=== PATIENT | male | born 1960 | race Caucasian/White ===

== ENCOUNTER 2018-02-15 07:52 | Day surgery (SDC) | payer BC ==
[~2018-02-15 07:52] MED LIST: Midazolam 1 MG/ML 2 ML SDV ONE; Propofol 200 MG/20 ML SDV ONE; fentaNYL 100 MCG/2 ML SDV ONE
[2018-02-15] MEDS ORDERED: Lactated Ringers 1,000 ML IV SCH (08:45)
[2018-02-15] MEDS ORDERED: Propofol 200 MG/20 ML SDV ONE (09:25)
--- NOTE | 2018-02-15 10:14 | OR ---
DATE OF PROCEDURE: 02/15/2018 PROCEDURE: 1. EGD. 2. Colonoscopy. FINDINGS: 1. No evidence of old or new blood. 2. Very poor colon prep. COMPLICATIONS: None. WELDER/INSTALLER: None. PREOPERATIVE DIAGNOSIS: Weight loss. POSTOPERATIVE DIAGNOSIS: Weight loss. RISKS: Risks, benefits, alternatives, and limitations including, but not limited to infection, bleeding, and perforation were explained to the patient who wished to proceed. PROCEDURE IN DETAIL: The patient was placed in left lateral decubitus position. The EGD scope was introduced, advanced atraumatically into the second part of the duodenum. No abnormalities were noted. No old or new blood. The patient did have some very mild inflammation of the GE junction. This was biopsied using cold biopsy forceps. Remainder of the EGD scope was normal. A digital rectal exam was performed next without abnormalities. Scope was introduced and advanced atraumatically to the ileocecal valve. The patient had solid and liquid stool remaining. Suction irrigation attempts were made to maximize optimization of the colonic mucosa. There was no blood noted, however. There was no evidence of masses or polyps. No diverticulosis. No abnormalities on retroflexion. The patient tolerated the procedure well. Crescencio Bruner MD /[id number]
== END 2018-02-15 10:35 | disposition home or self-care (01) ==
LOC: JP.SDS 07:52
PROVIDERS: ATTEND Surgery
DX: K29.50 Unspecified chronic gastritis without bleeding (principal); R63.4 Abnormal weight loss; D64.9 Anemia, unspecified; J45.909 Unspecified asthma, uncomplicated
CPT/HCPCS: 43239; 45378; 88305; J2250; J2704; J3010; J7120

== ENCOUNTER 2019-04-11 10:44 | Emergency (ER) | payer MEDICAID ==
[2019-04-11] MEDS ORDERED: Ondansetron 4 MG Tab.DIS PO ONE (11:19)
--- NOTE | 2019-04-11 11:29 | EDM.PDOC ---
ED HPI GENERAL MEDICAL PROBLEM - General Chief Complaint: Gastrointestinal Problem Stated Complaint: VOMITTING Time Seen by Provider: 04/11/19 11:05 Source of Information: Reports: Patient, Family History Limitations: Reports: No Limitations - History of Present Illness INITIAL COMMENTS - FREE TEXT/NARRATIVE: 58-year-old male with known metastatic prostate cancer who is been receiving treatments for the past year has had increased headaches and visual complaints so was scheduled for an MRI of his head today. He received an infusion 2 days ago. While coming in for his MRI he had one emesis, one additional emesis after the MRI so he was brought to the emergency room. If he lies still he feels okay , his only pain complaint is his headache. His brother thinks he looks pale. Onset: Gradual, Unknown/Unsure Associated Symptoms: Reports: Loss of Appetite, Malaise, Nausea/Vomiting, Weakness Headache Pain Score (Numeric/FACES): 8 - Related Data Allergies Allergy/AdvReac Type Severity Reaction Status Date / Time No Known Allergies Allergy Verified 04/11/19 10:58 Home Meds: Home Meds Escitalopram [Lexapro] 10 mg PO DAILY 02/13/18 [History] Abiraterone Acetate [Zytiga] 500 mg PO DAILY 04/11/19 [History] predniSONE [Prednisone] 10 mg PO DAILY 04/11/19 [History] Past Medical History - Past Health History Medical/Surgical History: Denies Medical/Surgical History HEENT History: Reports: Impaired Vision Genitourinary History: Reports: Other (See Below) Other Genitourinary History: prostate bx Psychiatric History: Reports: Depression Immunologic History: Reports: None Oncologic (Cancer) History: Reports: Bone, Prostate - Past Surgical History Head Surgeries/Procedures: Reports: None HEENT Surgical History: Reports: None Cardiovascular Surgical History: Reports: None Respiratory Surgical History: Reports: None GI Surgical History: Reports: None Endocrine Surgical History: Reports: None Neurological Surgical History: Reports: None Musculoskeletal Surgical History: Reports: None Oncologic Surgical History: Reports: None Dermatological Surgical History: Reports: None Social & Family History - Family History Family Medical History: Noncontributory - Tobacco Use Smoking Status *Q: Never Smoker Second Hand Smoke Exposure: No - Caffeine Use Caffeine Use: Reports: Tea - Recreational Drug Use Recreational Drug Use: No ED ROS GENERAL - Review of Systems Review Of Systems: See Below Constitutional: Reports: Malaise, Weakness, Decreased Appetite. Denies: Fever, Chills HEENT: Reports: Vision Change, Other (Brother thinks his speech is slower) Respiratory: Denies: Shortness of Breath Cardiovascular: Denies: Chest Pain GI/Abdominal: Reports: Nausea, Vomiting. Denies: Abdominal Pain : Reports: No Symptoms Skin: Reports: Pallor Neurological: Reports: Dizziness, Headache, Weakness. Denies: Difficulty Walking ED EXAM, GI/ABD - Physical Exam Exam: See Below Text/Narrative:: He appears to have a slight disconjugate gaze Exam Limited By: No Limitations General Appearance: Alert, No Apparent Distress Throat/Mouth: Other (Advanced dental caries and dental loss especially the upper teeth) Head: Atraumatic Respiratory/Chest: No Respiratory Distress Cardiovascular: Regular Rate, Rhythm GI/Abdominal Exam: Soft. No: Distended, Tender Extremities: No: Pedal Edema Neurological: Alert, Oriented Psychiatric: Flat Affect Skin Exam: Warm, Dry Course - Vital Signs Last Recorded V/S: Last Vital Signs Temp 97.6 F 04/11/19 11:01 Pulse 65 04/11/19 11:27 Resp 16 04/11/19 11:27 BP 154/75 H 04/11/19 11:27 Pulse Ox 97 04/11/19 11:27 - Orders/Labs/Meds Labs: Laboratory Tests 04/11/19 04/11/19 Range/Units 11:25 11:25 WBC 3.5 L (4.5-11.0) K/uL RBC 3.39 L (4.30-5.90) M/uL Hgb 9.5 L (12.0-15.0) g/dL Hct 29.1 L (40.0-54.0) % MCV 86 (80-98) fL MCH 28 (27-31) pg MCHC 33 (32-36) % Plt Count 214 (150-400) K/uL Neut % (Auto) 65 (36-66) % Lymph % (Auto) 21 L (24-44) % Tama % (Auto) 10 H (2-6) % Eos % (Auto) 3 (2-4) % Baso % (Auto) 1 (0-1) % Sodium 141 (140-148) mmol/L Potassium 3.8 (3.6-5.2) mmol/L Chloride 103 (100-108) mmol/L Carbon Dioxide 28 (21-32) mmol/L Anion Gap 9.8 (5.0-14.0) mmol/L BUN 21 H (7-18) mg/dL Creatinine 1.0 (0.8-1.3) mg/dL Est Cr Clr Drug Dosing 66.34 mL/min Estimated GFR (MDRD) > 60 (>60) Glucose 92 (74-106) mg/dL Calcium 8.0 L (8.5-10.1) mg/dL Total Bilirubin 0.4 (0.2-1.0) mg/dL AST 123 H (15-37) U/L ALT 20 (12-78) U/L Alkaline Phosphatase 420 H (46-116) U/L Total Protein 6.6 (6.4-8.2) g/dL Albumin 3.1 L (3.4-5.0) g/dL Globulin 3.5 (2.3-3.5) g/dL Albumin/Globulin Ratio 0.9 L (1.2-2.2) Meds: Medications Discontinued Medications Generic Name Dose Route Start Last Admin Trade Name Freq PRN Reason Stop Dose Admin Methylprednisolone Sodium Succinate 125 mg 04/11/19 12:57 04/11/19 13:22 Solu-Medrol IM 04/11/19 12:58 125 mg ONETIME ONE Administration Ondansetron HCl 4 mg 04/11/19 11:19 04/11/19 11:26 Zofran Odt PO 04/11/19 11:20 4 mg ONETIME ONE Administration - Re-Assessments/Exams Free Text/Narrative Re-Assessment/Exam: 04/11/19 11:28 Patient was given one sublingual Zofran 4 mg, and a CBC and CMP was obtained. 04/11/19 12:53 CMP look reasonably normal, other than an elevated alkaline phosphatase because of the metastatic bone disease. Hemoglobin has gone down in the last couple of weeks to 9.5 from 11.4. The most concerning finding was the MRI report which I asked to be read as stat, it shows metastatic lesions in the skull as well as dural thickening likely metastatic disease. I'm going to give him 125 mg of IM Solu-Medrol to hopefully decrease some of this inflammation, given 12 hydrocodone for extra pain control and some sublingual Zofran. We discussed transferring him today but the brother would like to give him a few days and see how he does. Departure - Departure Time of Disposition: 13:32 Disposition: Home, Self-Care 01 Clinical Impression: Frequent headaches, Prostate cancer metastatic to bone - Discharge Information Instructions: Prostate Cancer, [id number] Referrals: PCP,None [Primary Care Provider] - Forms: ED Department Discharge Care Plan Goals: Use Zofran under your tongue 3 times a day for nausea and take the hydrocodone for extra pain control. Recheck as scheduled.
[2019-04-11] MEDS ORDERED: methylPREDNISolone Sodium Succinate 125 MG/2 ML SDV IM ONE (12:57)
== END 2019-04-11 13:24 | disposition home or self-care (01) ==
LOC: JP.ED 10:44
DX: R51 Headache (principal); C61 Malignant neoplasm of prostate; C79.51 Secondary malignant neoplasm of bone; Z79.899 Other long term (current) drug therapy
CPT/HCPCS: 36415; 80053; 85025; 96372; 99284; A9270; J2930

== ENCOUNTER 2019-04-14 12:55 | Observation (INO) | payer MEDICAID ==
[2019-04-14] MEDS ORDERED: Sodium Chloride 0.9% 10 ML Syringe FLUSH PRN ×2 (13:14→14:38)
--- NOTE | 2019-04-14 13:25 | EDM.PDOC ---
ED HPI GENERAL MEDICAL PROBLEM - General Chief Complaint: General Stated Complaint: CANCER PATIENT Time Seen by Provider: 04/14/19 13:00 Source of Information: Reports: Family History Limitations: Reports: Altered Mental Status, Other (Patient is lethargic and unresponsive) - History of Present Illness INITIAL COMMENTS - FREE TEXT/NARRATIVE: 58-year-old male with known metastatic cancer, including metastatic disease to the cranium and dura, felt to be prostate cancer. He has an appointment for radiation therapy tomorrow to hopefully reduce tumor burden but the outcome and expectations are very grim. He was seen last week, given some pain control, a call to his oncologist on Monday resulted in the edition of oral Decadron. He was still having significant headaches but yesterday stop taking anything oral, started having decreased responsiveness and today his brother wasn't able to wake him up. He is still breathing but it's irregular. Associated Symptoms: Denies: Nausea/Vomiting - Related Data Allergies Allergy/AdvReac Type Severity Reaction Status Date / Time No Known Allergies Allergy Verified 04/14/19 13:06 Home Meds: Home Meds Escitalopram [Lexapro] 10 mg PO DAILY 02/13/18 [History] Abiraterone Acetate [Zytiga] 500 mg PO DAILY 04/11/19 [History] predniSONE [Prednisone] 10 mg PO DAILY 04/11/19 [History] Past Medical History - Past Health History Medical/Surgical History: Denies Medical/Surgical History HEENT History: Reports: Impaired Vision Genitourinary History: Reports: Other (See Below) Other Genitourinary History: prostate bx Psychiatric History: Reports: Depression Immunologic History: Reports: None Oncologic (Cancer) History: Reports: Bone, Prostate - Past Surgical History Head Surgeries/Procedures: Reports: None HEENT Surgical History: Reports: None Cardiovascular Surgical History: Reports: None Respiratory Surgical History: Reports: None GI Surgical History: Reports: None Endocrine Surgical History: Reports: None Neurological Surgical History: Reports: None Musculoskeletal Surgical History: Reports: None Oncologic Surgical History: Reports: None Dermatological Surgical History: Reports: None Social & Family History - Family History Family Medical History: Noncontributory - Caffeine Use Caffeine Use: Reports: Tea ED ROS GENERAL - Review of Systems Review Of Systems: Unable To Obtain ED EXAM, GENERAL - Physical Exam Exam: See Below Exam Limited By: Other General Appearance: Obtunded Eye Exam: Right Eye: Other (Patient now has a disconjugate gaze, with a fixed dilated right pupil) Respiratory/Chest: No Respiratory Distress, Other (Breathing is irregular) Cardiovascular: Regular Rate, Rhythm Neurological: Slow to Respond Skin Exam: Warm, Dry Course - Vital Signs Last Recorded V/S: Last Vital Signs Temp 209.8 F H 04/14/19 13:13 Pulse 64 04/14/19 13:13 Resp 13 04/14/19 13:13 BP 164/78 H 04/14/19 13:13 Pulse Ox 96 04/14/19 13:13 - Orders/Labs/Meds Orders: Medication Orders Acetaminophen (Tylenol) 650 mg PO Q4H PRN PRN Reason: Pain (Mild 1-3)/fever Dexamethasone (Dexamethasone) 4 mg IVPUSH Q6H JSOE Last Admin: 04/14/19 15:48 Dose: 4 mg Lorazepam (Ativan Oral Concentrate 1mg/0.5 Ml U/D) 0.5 mg BUCCAL Q2H PRN PRN Reason: Anxiety Last Admin: 04/14/19 16:27 Dose: 0.5 mg Lorazepam (Ativan) 1 mg IVPUSH Q1H PRN PRN Reason: Seizures Morphine Sulfate (Morphine 10 Mg/0.5 Ml Oral Syringe) 5 mg BUCCAL Q1H PRN PRN Reason: Pain Last Admin: 04/14/19 15:48 Dose: 5 mg Ondansetron HCl (Zofran) 4 mg IV Q4H PRN PRN Reason: Nausea/Vomiting Polyethylene Glycol (Miralax) 17 gm PO DAILY PRN PRN Reason: Constipation Sodium Chloride (Saline Flush) 10 ml FLUSH ASDIRECTED PRN PRN Reason: Keep Vein Open Meds: Medications Generic Name Dose Route Start Last Admin Trade Name Freq PRN Reason Stop Dose Admin Acetaminophen 650 mg 04/14/19 14:38 Tylenol PO Q4H PRN Pain (Mild 1-3)/fever Dexamethasone 4 mg 04/14/19 16:00 04/14/19 15:48 Dexamethasone IVPUSH 4 mg Q6H JOSE Administration Lorazepam 0.5 mg 04/14/19 14:38 04/14/19 16:27 Ativan Oral Concentrate 1mg/0.5 Ml U/D BUCCAL 0.5 mg Q2H PRN Administration Anxiety Lorazepam 1 mg 04/14/19 14:38 Ativan IVPUSH Q1H PRN Seizures Morphine Sulfate 5 mg 04/14/19 14:38 04/14/19 15:48 Morphine 10 Mg/0.5 Ml Oral Syringe BUCCAL 5 mg Q1H PRN Administration Pain Ondansetron HCl 4 mg 04/14/19 14:38 Zofran IV Q4H PRN Nausea/Vomiting Polyethylene Glycol 17 gm 04/14/19 14:38 Miralax PO DAILY PRN Constipation Sodium Chloride 10 ml 04/14/19 14:38 Saline Flush FLUSH ASDIRECTED PRN Keep Vein Open Discontinued Medications Generic Name Dose Route Start Last Admin Trade Name Freq PRN Reason Stop Dose Admin Sodium Chloride 10 ml 04/14/19 13:14 Saline Flush FLUSH ASDIRECTED PRN Keep Vein Open - Re-Assessments/Exams Free Text/Narrative Re-Assessment/Exam: 04/14/19 13:24 Explained to the patient's brother that the physical findings are indicating increased cranial pressure in a terminal event is likely. He is going to discuss hospitalization with our hospitalist service for end-of-life care. Departure - Departure Time of Disposition: 14:16 Disposition: Admitted As Inpatient 65 Condition: Critical Clinical Impression: Prostate cancer metastatic to bone, Encephalopathy, unspecified Change in mental status Qualifiers: Altered mental status type: somnolence Qualified Code(s): R40.0 - Somnolence - Discharge Information
--- NOTE | 2019-04-14 13:56 | PCM.HP ---
H&P History of Present Illness - General Date of Service: 04/14/19 Admit Problem/Dx: Admission Diagnosis/Problem Admission Diagnosis/Problem Prostate cancer metastatic to multiple sites Source of Information: Family, Provider, RN Notes Reviewed History Limitations: Reports: Altered Mental Status (Obtunded) - History of Present Illness Initial Comments - Free Text/Narative: Mr. Hi is a 58-year-old gentleman who was admitted to [facility] status, for management of end-stage widely metastatic prostate carcinoma. He is been having difficulty with headaches, recent head scan showed evidence of significant metastatic disease involving the skull as well as meninges. Plan was to consider palliative radiation therapy, he preferred to go home rather than be transferred to [place] on recent evaluation. Last night he slept in the chair and his brother was unable to wake him up this morning. He was brought into the emergency department for further evaluation. On physical examination the right pupil is dilated and the left pupil is small. Likely that he has progressed to herniation related to his metastatic prostate carcinoma. His brother is his healthcare power of assistant district attorney. He feels it's consistent with the patient's previously expressed wishes that we proceed with comfort cares but no further aggressive evaluation or intervention. - Related Data Allergies/Adverse Reactions: Allergies Allergy/AdvReac Type Severity Reaction Status Date / Time No Known Allergies Allergy Verified 04/14/19 13:06 Home Medications: Home Meds Escitalopram [Lexapro] 10 mg PO DAILY 02/13/18 [History] Abiraterone Acetate [Zytiga] 500 mg PO DAILY 04/11/19 [History] predniSONE [Prednisone] 10 mg PO DAILY 04/11/19 [History] Past Medical History - Past Health History Medical/Surgical History: Denies Medical/Surgical History HEENT History: Reports: Impaired Vision Genitourinary History: Reports: Other (See Below) Other Genitourinary History: prostate bx Psychiatric History: Reports: Depression Immunologic History: Reports: None Oncologic (Cancer) History: Reports: Bone, Prostate - Past Surgical History Head Surgeries/Procedures: Reports: None HEENT Surgical History: Reports: None Cardiovascular Surgical History: Reports: None Respiratory Surgical History: Reports: None GI Surgical History: Reports: None Endocrine Surgical History: Reports: None Neurological Surgical History: Reports: None Musculoskeletal Surgical History: Reports: None Oncologic Surgical History: Reports: None Dermatological Surgical History: Reports: None Social & Family History - Family History Family Medical History: Noncontributory - Caffeine Use Caffeine Use: Reports: Tea H&P Review of Systems - Review of Systems: Review Of Systems: Unable To Obtain General: Reports: ROS unobtainable (Unable to obtain) Exam - Exam Exam: (Unable to obtain, patient is obtunded) - Vital Signs Vital Signs: Last Vital Signs Temp 209.8 F H 04/14/19 13:13 Pulse 64 04/14/19 13:13 Resp 13 04/14/19 13:13 BP 164/78 H 04/14/19 13:13 Pulse Ox 96 04/14/19 13:13 Weight: 125 lb - Exam General: Obtunded HEENT: No: Pupils Equal (Right pupil is large, left of normal size) Neck: Supple, Trachea Midline, +2 Carotid Pulse wo Bruit Lungs: Clear to Auscultation, Normal Respiratory Effort Cardiovascular: Regular Rate, Regular Rhythm, Normal S1, Normal S2 GI/Abdominal Exam: Soft, No Organomegaly, No Distention Extremities: Pedal Edema Skin: Warm, Dry, Intact Neuro Extensive - Mental Status: Withdraws to Pain *Q Meaningful Use (ADM) - VTE *Q VTE Anticoagulation Contraindications: Med/TX Not Indicated/Need - VTE Risk Assess *Q Each Risk Factor Represents 1 Point: None Total Score 1 Point Risk Factors: 0 Each Risk Factor Represents 2 Points: Age 60 - 74 Years, Malignancy (present or previous) Total Score 2 Point Risk Factors: 4 Each Risk Factor Represents 3 Points: None Total Score 3 Point Risk Factors: 0 Each Risk Factor Represents 5 Points: None Total Score 5 Point Risk Factors: 0 Venous Thromboembolism Risk Factor Score *Q: 4 Problem List Initiated/Reviewed/Updated: Yes Orders Last 24hrs: Active Orders 24 hr Category Date Time Status Patient Status Manage Transfer [TRANSFER] Routine ADT 04/14/19 13:43 Ordered Sodium Chloride 0.9% [Saline Flush] Med 04/14/19 13:14 Active 10 ml FLUSH ASDIRECTED PRN Saline Lock Insert [OM.PC] Routine Oth 04/14/19 13:14 Ordered Resuscitation Status Routine Resus Stat 04/14/19 13:45 Ordered Medication Orders Sodium Chloride (Saline Flush) 10 ml FLUSH ASDIRECTED PRN PRN Reason: Keep Vein Open Assessment/Plan Comment:: ASSESSMENT AND PLAN END-STAGE WIDELY METASTATIC PROSTATE CARCINOMA-known metastatic disease to skull and meninges. 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 His brother is present and he is his confirmed healthcare power of assistant district attorney, patient is obtunded and unable to provide any meaningful information. Brother feels that it's very consistent with on's previously expressed wishes that we treat for comfort at this point, with no further aggressive intervention or evaluation. -Comfort cares only -IV Decadron 4 mg every 6 hours -Liquid morphine as needed for pain -Liquid lorazepam as needed for anxiety or agitation -IV lorazepam as needed for seizures PALLIATIVE CARE-no further aggressive interventions or evaluation as above MAINTENANCE ISSUES -DVT prophylaxis; not indicated -GI prophylaxis; not indicated -Jerome catheter; not indicated -Nutrition; regular diet as tolerated -Nicotine dependence; not required CODE STATUS-DNR/DNI, COMFORT CARES ONLY ADMISSION STATUS-this patient will be admitted to observation status, expect no more than a one night hospital stay for evaluation and management of problems as outlined above. DISPOSITION-anticipate imminent PRIMARY CARE PROVIDER-
[2019-04-14] MEDS ORDERED: Ondansetron 4 MG/2 ML SDV IV PRN (14:38)
[2019-04-14] MEDS ORDERED: LORazepam 2 MG/ML SDV IVPUSH PRN (14:38)
[2019-04-14] MEDS ORDERED: Acetaminophen 325 MG Tab PO PRN (14:38)
[2019-04-14] MEDS ORDERED: Polyethylene Glycol 3350 Powder 17 GM Packet PO PRN (14:38)
[2019-04-14] MEDS: Morphine 10 MG/0.5 ML Oral Syringe BUCCAL PRN ×2 (15:48→19:57)
[2019-04-14] MEDS: Dexamethasone 4 MG/ML SDV IVPUSH SCH ×2 (15:48→22:03)
[2019-04-14] MEDS: LORazepam ORAL Concentrate 1MG/0.5ML U/D BUCCAL PRN ×2 (16:27→21:59)
[2019-04-15] MEDS: Morphine 10 MG/0.5 ML Oral Syringe BUCCAL PRN ×2 (00:12→04:15)
[2019-04-15] MEDS: LORazepam ORAL Concentrate 1MG/0.5ML U/D BUCCAL PRN (02:20)
[2019-04-15] MEDS: Dexamethasone 4 MG/ML SDV IVPUSH SCH ×3 (04:50→16:14)
--- NOTE | 2019-04-15 10:12 | PCM.PN ---
- General Info Date of Service: 04/15/19 Subjective Update: There were no acute events overnight. The patient is alert and interactive today. He is not able to open his right eye. When his right eyelid is mechanically retracted he is able to see but has blurry vision. He does not report a headache today. Does not have nausea. Situation was discussed with his brother as well as 2 nieces. The plan is to continue with comfort care only. Additional workup will not be completed at this time. Hospice consultation will be completed this afternoon. Functional Status: Reports: Pain Controlled - Review of Systems HEENT: Reports: Visual Changes Neurological: Reports: Confusion, Other. Denies: Headache - Patient Data Vitals - Most Recent: Last Vital Signs Temp 37.3 C 04/15/19 07:00 Pulse 83 04/15/19 07:00 Resp 20 04/15/19 07:00 BP 125/72 04/15/19 07:00 Pulse Ox 96 04/15/19 07:00 Weight - Most Recent: 56.699 kg I&O - Last 24 Hours: Intake & Output 04/14/19 04/15/19 04/15/19 22:59 06:59 14:59 Intake Total 350 Balance 350 Med Orders - Current: Current Medications Acetaminophen (Tylenol) 650 mg PO Q4H PRN PRN Reason: Pain (Mild 1-3)/fever Dexamethasone (Dexamethasone) 4 mg IVPUSH Q6H JOSE Stop: 04/15/19 16:00 Last Admin: 04/15/19 09:19 Dose: 4 mg Lorazepam (Ativan Oral Concentrate 1mg/0.5 Ml U/D) 0.5 mg BUCCAL Q2H PRN PRN Reason: Anxiety Last Admin: 04/15/19 02:20 Dose: 0.5 mg Lorazepam (Ativan) 1 mg IVPUSH Q1H PRN PRN Reason: Seizures Morphine Sulfate (Morphine 10 Mg/0.5 Ml Oral Syringe) 5 mg BUCCAL Q1H PRN PRN Reason: Pain Last Admin: 04/15/19 04:15 Dose: 5 mg Ondansetron HCl (Zofran) 4 mg IV Q4H PRN PRN Reason: Nausea/Vomiting Polyethylene Glycol (Miralax) 17 gm PO DAILY PRN PRN Reason: Constipation Sodium Chloride (Saline Flush) 10 ml FLUSH ASDIRECTED PRN PRN Reason: Keep Vein Open Discontinued Medications Sodium Chloride (Saline Flush) 10 ml FLUSH ASDIRECTED PRN PRN Reason: Keep Vein Open - Exam Quality Assessment: No: Supplemental Oxygen General: Alert, Cooperative, No Acute Distress HEENT: Other (right eye ptosis). No: Pupils Equal (right pupil dilated ) Lungs: Normal Respiratory Effort Cardiovascular: Regular Rate, Regular Rhythm GI/Abdominal Exam: Soft, No Distention Extremities: No Pedal Edema Skin: Warm, Dry Neurological: No New Focal Deficit, Strength Equal Bilateral Psy/Mental Status: Alert, Normal Affect - Problem List Review Problem List Initiated/Reviewed/Updated: Yes - My Orders Last 24 Hours: My Active Orders 04/15/19 21:00 dexAMETHasone 8 mg PO BID - Plan Plan:: ASSESSMENT AND PLAN END-STAGE WIDELY METASTATIC PROSTATE CARCINOMA - known metastatic disease to skull and meninges. Patient and brother who is the power of claims attorney are not interested in aggressive workup. They are interested in hospice consultation for further information. Patient is alert and interactive today after steroids were initiated yesterday. -Comfort cares only - transition to oral dexamethasone -Liquid morphine as needed for pain -Liquid lorazepam as needed for anxiety or agitation -IV lorazepam as needed for seizures PALLIATIVE CARE - no further aggressive interventions or evaluation as above MAINTENANCE ISSUES -DVT prophylaxis; not indicated -GI prophylaxis; not indicated -Jerome catheter; not indicated -Nutrition; regular diet as tolerated -Nicotine dependence; not required CODE STATUS-DNR/DNI, COMFORT CARES ONLY ADMISSION STATUS - this patient will be admitted to observation status, expect no more than a one night hospital stay for evaluation and management of problems as outlined above. DISPOSITION - anticipate discharge to home with hospice Daniele Ambriz M.D.
[2019-04-15] MEDS: Dexamethasone 4 MG Tab PO SCH (21:36)
[2019-04-16] MEDS ORDERED: ABIRATERONE ACETATE 1000 MG PO SCH (07:30)
[2019-04-16] MEDS: Dexamethasone 4 MG Tab PO SCH ×2 (08:36→21:33)
[2019-04-16] MEDS: ZYTIGA 500 MG PO SCH (08:36)
--- NOTE | 2019-04-16 11:53 | PCM.PN ---
- General Info Date of Service: 04/16/19 Subjective Update: There were no acute events overnight. Patient slept well. He has not had any pain. He does not report a headache. Still can't open his right eye. Appetite has been good. Family met with hospice yesterday and they are strongly considering utilizing hospice services after hospital discharge. Family is preparing the home for the patient to come home if he has a stable night tonight. Functional Status: Reports: Pain Controlled, Tolerating Diet - Review of Systems General: Denies: Fever HEENT: Reports: Visual Changes Neurological: Denies: Headache - Patient Data Vitals - Most Recent: Last Vital Signs Temp 37.1 C 04/16/19 10:46 Pulse 16 L 04/16/19 10:46 Resp 16 04/16/19 10:46 BP 164/111 H 04/16/19 10:46 Pulse Ox 98 04/16/19 10:46 Weight - Most Recent: 56.699 kg I&O - Last 24 Hours: Intake & Output 04/15/19 04/16/19 04/16/19 22:59 06:59 14:59 Intake Total 600 Balance 600 Med Orders - Current: Current Medications Acetaminophen (Tylenol) 650 mg PO Q4H PRN PRN Reason: Pain (Mild 1-3)/fever Dexamethasone (Dexamethasone) 8 mg PO BID JOSE Last Admin: 04/16/19 08:36 Dose: 8 mg Lorazepam (Ativan Oral Concentrate 1mg/0.5 Ml U/D) 0.5 mg BUCCAL Q2H PRN PRN Reason: Anxiety Last Admin: 04/15/19 02:20 Dose: 0.5 mg Lorazepam (Ativan) 1 mg IVPUSH Q1H PRN PRN Reason: Seizures Morphine Sulfate (Morphine 10 Mg/0.5 Ml Oral Syringe) 5 mg BUCCAL Q1H PRN PRN Reason: Pain Last Admin: 04/15/19 04:15 Dose: 5 mg Ondansetron HCl (Zofran) 4 mg IV Q4H PRN PRN Reason: Nausea/Vomiting Zytiga 500mg ( (Abiraterone) (Ptom)) 0 each PO DAILY JOSE Last Admin: 04/16/19 08:36 Dose: 1 each Polyethylene Glycol (Miralax) 17 gm PO DAILY PRN PRN Reason: Constipation Sodium Chloride (Saline Flush) 10 ml FLUSH ASDIRECTED PRN PRN Reason: Keep Vein Open Discontinued Medications Dexamethasone (Dexamethasone) 4 mg IVPUSH Q6H JOSE Stop: 04/15/19 16:00 Last Admin: 04/15/19 16:14 Dose: 4 mg Sodium Chloride (Saline Flush) 10 ml FLUSH ASDIRECTED PRN PRN Reason: Keep Vein Open - Exam Quality Assessment: No: Supplemental Oxygen General: Alert, Oriented, Cooperative, No Acute Distress HEENT: Other (right ptosis ). 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 Patient and brother who is the power of dental surgery doctor are not interested in aggressive workup. Hospice consultation completed. The goal is for the patient to return home and the family is working on preparing the space for him. Tolerating steroids so far. Still unable to open the right eye. -Comfort cares only -Continue oral dexamethasone -Liquid morphine as needed for pain -Liquid lorazepam as needed for anxiety or agitation -IV lorazepam as needed for seizures PALLIATIVE CARE - no further aggressive interventions or evaluation as above MAINTENANCE ISSUES -DVT prophylaxis; not indicated -GI prophylaxis; not indicated -Jerome catheter; not indicated -Nutrition; regular diet as tolerated -Nicotine dependence; not required CODE STATUS-DNR/DNI, COMFORT CARES ONLY ADMISSION STATUS - this patient will be admitted to observation status, expect no more than a one night hospital stay for evaluation and management of problems as outlined above. DISPOSITION - anticipate discharge to home with hospice tomorrow Daniele Ambriz M.D.
[2019-04-16] MEDS: Morphine 10 MG/0.5 ML Oral Syringe BUCCAL PRN (21:33)
[2019-04-17] MEDS: Morphine 10 MG/0.5 ML Oral Syringe BUCCAL PRN (09:28)
[2019-04-17] MEDS: ZYTIGA 500 MG PO SCH (09:30)
[2019-04-17] MEDS: Dexamethasone 4 MG Tab PO SCH (09:30)
--- NOTE | 2019-04-17 11:54 | PCM.DCSUM1 ---
Discharge Summary - Hospital Course Brief History: 58-year-old male with known prostate cancer with metastases to the skull and dura who presented with an episode of unresponsiveness. Workup in the emergency room was concerning for brain herniation and he was admitted for comfort care/palliative care. Diagnosis: Stroke: No - Discharge Data Discharge Date: 04/17/19 Discharge Disposition: Home, Self-Care 01 Condition: Stable - Discharge Diagnosis/Problem(s) (1) Prostate cancer metastatic to bone SNOMED Code(s): 706795806 ICD Code: C61 - MALIGNANT NEOPLASM OF PROSTATE; C79.51 - SECONDARY MALIGNANT NEOPLASM OF BONE Status: Acute (2) Encephalopathy, unspecified SNOMED Code(s): 34372215 ICD Code: G93.40 - ENCEPHALOPATHY, UNSPECIFIED Status: Acute - Patient Summary/Data Hospital Course: Isaac presented to the emergency room after an episode of unresponsiveness at home. Examination in the emergency room revealed what appeared to be a blown pupil on the right side. There was concern that the patient was herniating in the setting of his prostate cancer with metastases to the skull and invasion into the dura. Discussion with his brother in the emergency room revealed that he did not think the patient would want aggressive measures in the setting of his very advanced prostate cancer. No imaging was completed. The patient was admitted to the hospital for comfort cares. Steroids were administered with the help of reducing discomfort. Overnight there were no acute issues and the patient received very minimal medications for discomfort. The morning after admission the patient woke up and seemed to be back to his usual self other than feeling weak. The one exception was that he was not able to open his right eye. Even with his right eye open his pupil was very dilated and vision was blurry. The patient did have a headache temporarily the day after admission but has not had a headache since that time. We had several discussions with the patient and his brother about plan of care moving forward. They were in agreement that with his advanced prostate cancer that further aggressive workup or treatment were not within their wishes. The patient desires quality of life over quantity at this time. They did consult with hospice and are interested in hospice care after the hospital discharge. Patient has not used any pain medication since early into the hospital stay. He is comfortable and up and walking around with minimal assistance. He has been eating a regular diet. He has been tolerating his oral steroids well. The plan is for him to be discharged with his brother and will be staying with his brother. Hospice will be completing admission in 2 days time. He will continue on his steroids. He will continue taking his Zytiga as long as he has his own supply which is about 1 month. The patient and family were in agreement with the planned. - Patient Instructions Diet: Regular Diet as Tolerated Activity: As Tolerated Driving: Do Not Drive Showering/Bathing: May Shower Notify Provider of: Fever, Increased Pain Other/Special Instructions: 1. You were in the hospital for management of encephalopathy likely as a result of your advanced and metastatic prostate cancer causing swelling around your brain. Your condition did improve with steroid therapy. I would recommend that you continue taking dexamethasone 8 mg twice daily to help reduce swelling in/around your brain as well as help with the bone pain. You may continue to take your Zytiga daily until your supply is exhausted. You may use acetaminophen or ibuprofen for pain or headaches. 2. I have placed a referral to Hospice. They will complete the admission process on April 19. If you have difficulties between now and the time of admission please call [phone] and ask to speak to Dr. Ambriz. - Discharge Plan *PRESCRIPTION DRUG MONITORING PROGRAM REVIEWED*: Not Applicable *COPY OF PRESCRIPTION DRUG MONITORING REPORT IN PATIENT GASPER: Not Applicable Home Medications: Home Meds Abiraterone Acetate [Zytiga] 1,000 mg PO ACBREAKFAST 04/11/19 [History] dexAMETHasone [Dexamethasone] 8 mg PO BID 04/17/19 [History] Oxygen Therapy Mode: Room Air - Discharge Summary/Plan Comment DC Time >30 min.: Yes (40 - coordinating hospice care) - Patient Data Vitals - Most Recent: Last Vital Signs Temp 37.1 C 04/16/19 10:46 Pulse 16 L 04/16/19 10:46 Resp 16 04/16/19 10:46 BP 164/111 H 04/16/19 10:46 Pulse Ox 98 04/16/19 10:46 Weight - Most Recent: 56.699 kg I&O - Last 24 hours: Intake & Output 04/16/19 04/17/19 04/17/19 22:59 06:59 14:59 Intake Total 240 Balance 240 Med Orders - Current: Current Medications Acetaminophen (Tylenol) 650 mg PO Q4H PRN PRN Reason: Pain (Mild 1-3)/fever Dexamethasone (Dexamethasone) 8 mg PO BID [facility] Last Admin: 04/17/19 09:30 Dose: 8 mg Lorazepam (Ativan Oral Concentrate 1mg/0.5 Ml U/D) 0.5 mg BUCCAL Q2H PRN PRN Reason: Anxiety Last Admin: 04/15/19 02:20 Dose: 0.5 mg Lorazepam (Ativan) 1 mg IVPUSH Q1H PRN PRN Reason: Seizures Last Admin: 04/16/19 23:14 Dose: 1 mg Morphine Sulfate (Morphine 10 Mg/0.5 Ml Oral Syringe) 5 mg BUCCAL Q1H PRN PRN Reason: Pain Last Admin: 04/17/19 09:28 Dose: 5 mg Ondansetron HCl (Zofran) 4 mg IV Q4H PRN PRN Reason: Nausea/Vomiting Last Admin: 04/16/19 23:09 Dose: 4 mg Zytiga 500mg ( (Abiraterone) (Ptom)) 0 each PO DAILY [facility] Last Admin: 04/17/19 09:30 Dose: 1 each Polyethylene Glycol (Miralax) 17 gm PO DAILY PRN PRN Reason: Constipation Sodium Chloride (Saline Flush) 10 ml FLUSH ASDIRECTED PRN PRN Reason: Keep Vein Open Discontinued Medications Dexamethasone (Dexamethasone) 4 mg IVPUSH Q6H [facility] Stop: 04/15/19 16:00 Last Admin: 04/15/19 16:14 Dose: 4 mg Sodium Chloride (Saline Flush) 10 ml FLUSH ASDIRECTED PRN PRN Reason: Keep Vein Open - Exam Quality Assessment: Denies: Supplemental Oxygen General: Reports: Alert, Oriented, Cooperative, No Acute Distress HEENT: Reports: Other (Right eye ptosis). Denies: Pupils Equal Lungs: Reports: Normal Respiratory Effort GI/Abdominal Exam: Soft, No Distention Extremities: No Pedal Edema Psy/Mental Status: Reports: Alert, Normal Affect *Q Meaningful Use (DIS) - VTE *Q VTE Anticoagulation Contraindications: Med/TX Not Indicated/Need
== END 2019-04-17 13:30 | disposition home or self-care (01) ==
LOC: JP.ED 12:55 → JP.MS 13:43 → JP.ED 14:16
PROVIDERS: ADMIT Hospitalist; ATTEND Internal Medicine
DX: C61 Malignant neoplasm of prostate (principal); C79.51 Secondary malignant neoplasm of bone; C79.49 Secondary malignant neoplasm of other parts of nervous system; G93.40 Encephalopathy, unspecified; H54.7 Unspecified visual loss; R40.0 Somnolence; Z79.52 Long term (current) use of systemic steroids; F32.9 Major depressive disorder, single episode, unspecified
CPT/HCPCS: 96374; 96375; 96376; 99285; A9270; G0378; J1100; J2060; J2405; J8540